=== PATIENT | male | born 1970 | race Caucasian/White ===

== ENCOUNTER → 2016-06-03 | Day surgery (SDC) | payer OTHER ==
[~2016-06-03] MED LIST: BACITRACIN IM FOR SOLN 50,000 UNIT VIAL ONE; BUPIVACAINE HCL PF 0.75% 30 ML VIAL ONE; LACTATED RINGER'S 1000 ML INJ 1,000 ML ONE; LIDOCAINE 1.5%/EPINEPHrine 1:200,000 PF SOLN 30 ML AMP ONE; MIDAZOLAM HCL 5 MG/ML VIAL (1 ML) ONE; PROPOFOL 200 MG/20 ML AMP IV ONE; SODIUM CHLORIDE 0.9% 20 ML VIAL ONE; ceFAZolin 2 GM PREMIX 50 ML ONE; ceFAZolin INJ 1,000 MG VIAL ONE
--- NOTE | 2016-06-04 12:32 | MP ---
cc: DEEPTI HERNANDEZ DATE OF SURGERY 06/03/2016 PREOPERATIVE DIAGNOSES Right knee anterior cruciate ligament tear. Right knee medial meniscus tear. POSTOPERATIVE DIAGNOSES Right knee anterior cruciate ligament tear. Right knee medial meniscus tear. PROCEDURE 1. Right knee arthroscopic-assisted anterior cruciate ligament allograft reconstruction. 2. Right knee arthroscopic partial medial meniscectomy. SURGEON Dr. Deepti Hernandez PRINCIPAL PLANNER Sinan Quijano PA-C ANESTHESIA General with a femoral nerve block. ESTIMATED BLOOD LOSS Less than 50 cc. TOURNIQUET TIME 0 minutes. COMPLICATIONS None. IMPLANTS USED Arthrex. JUSTIFICATION This patient is a 46-year male who injured the right knee and has had persistent pain, swelling instability in regards his condition, failure of conservative treatment. Clinical exam as well as MRI confirmed the above-named findings. The patient was counseled as to the risks, benefits and alternatives of the above-named surgical procedure. He did wish to proceed with surgery. PROCEDURE IN DETAIL Written consent was obtained. The patient was identified by name, taken to the operating room, placed in the supine position on the operating table. General anesthesia was administered as well as 2 grams of IV Ancef. The right thigh was carefully placed in a well-padded leg reyna, the right lower extremity prepped and draped using isopropyl alcohol, Hibiclens solution and DuraPrep solution. After a time-out was performed, medial and lateral parapatellar arthroscopic portals were established. The patellofemoral joint revealed no significant chondromalacia. The medial compartment revealed a large, complex unstable tear of the posterior horn of the medial meniscus. An arthroscopic biter followed by an arthroscopic shaver was introduced into the medial compartment to perform a partial medial meniscectomy. The meniscus was probed and noted to be stable. Slight grade 2 chondromalacia was noted in the medial femoral condyle. The intercondylar notch revealed a complete disruption of the anterior cruciate ligament. The lateral compartment was free of meniscal pathology and chondromalacia. The shaver was used to perform a debridement of the torn anterior cruciate ligament stump. The arthroscopic bur was used to perform a notchplasty. An Arthrex retro-cutting tibial guide was centered within the footprint of the ione ACL and a guidepin was used to capture the 10-mm reamer. The tibial tunnel was retro-cut 10-mm in diameter. A shaver was used to clean soft tissue and bone debris from within the knee. The Arthrex 7-mm [id number] medial portal guide was placed along the lateral femoral condyle. The knee was hyper-flexed and a guidepin was drilled exiting the lateral femoral condyle. A low-profile cannulated 10-mm reamer was drilled to a depth of 25 mm through the femur. The shaver was again used to clean soft tissue and bone debris from within the knee joint. The Beath needle was used to shuttle a FiberLink suture. On the back table, the posterior tibialis tendon allograft was thawed in antibiotic solution. Sinan Quijano, Physician Pharmacy Benefit Manager Certified, was instrumental in fashioning the graft to its full width diameter of 10 mm. A #2 FiberWire suture was placed in the proximal and distal portion of the graft. The graft was pre-tensioned on the back table. An Arthrex Tightrope anchor was placed along the midportion of the graft. The sutures to the anchor were placed through the eyelet of the FiberLink suture, then pulled from the tibial tunnel exiting the femoral tunnel. The anchor was then pulled through the lateral femoral cortex obtaining purchase. The graft was then pulled through the tibial tunnel and then fully seated into the femoral tunnel. The leg was taken through a full range of motion; no evidence of pistoning or impingements. With the leg held in near-full extension, a guidewire was placed along the anterior border of the graft and the Arthrex 9 x 20-mm bioabsorbable interference screw was used for fixation on the tibial side. An intraoperative Abiodun exam was performed which was negative. The exiting graft from the tibial tunnel was removed with a 10-blade scalpel. The tibial incision was closed with 3-0 Vicryl suture. The skin incisions closed with 3-0 Prolene. Sterile dressings applied. The patient tolerated the procedure well with no intraoperative complications noted. Sinan Quijano, Physician Pharmacy Benefit Manager Certified, was present during the entire procedure to include patient positioning and the procedure itself. The medical necessity of physician program services assistant was indicated in this case due to the complexity of the procedure. He assisted with appropriate manipulation of the leg, appropriate manipulation of the camera. He assisted with preparation of the graft and reconstruction. He also assisted with drilling of the tunnels and implantation of the graft along with the internal fixation devices for the purposes of reconstruction. MD LULU Max/SSB /3:47 PM /12:13 PM
== END | disposition home or self-care (01) ==
LOC: ESDC 12:27
PROVIDERS: ATTEND Orthopaedic Surgery Sports Medicine
DX: S83.511A Sprain of anterior cruciate ligament of right knee, initial encounter (principal); S83.231A Complex tear of medial meniscus, current injury, right knee, initial encounter
CPT/HCPCS: 01400; 01991; 29881; 29888; 64447; C1713; J0690; J2250; J7120